=== PATIENT | female | born 1990 | race Caucasian/White ===

== ENCOUNTER 2020-08-16 08:00 | Outpatient (CLI) | payer OTHER ==
[2020-08-16 16:13] LABS: MUDS CUTOFF CONCENTRATIONS CUTOFF CONC BELOW:
[2020-08-16 16:18] LABS: BILIRUBIN,URINE NEGATIVE (NEGATIVE); GLUCOSE, URINE (UA) NEGATIVE (NEGATIVE); KETONES,URINE (UA) NEGATIVE (NEGATIVE); LEUKOCYTE ESTERASE, URINE TRACE (NEGATIVE); NITRITE,URINE NEGATIVE (NEGATIVE); OCCULT BLOOD,URINE NEGATIVE (NEGATIVE); PROTEIN,URINE NEGATIVE (NEGATIVE); UROBILINOGEN,URINE 0.2 (NORMAL) E.U./dL (NORMAL)
[2020-08-16 16:28] LABS: BACTERIA,URINE Rare /HPF (None Seen); CLARITY,URINE CLEAR (CLEAR); RBC,URINE 0-5 /HPF (0-5); SQUAMOUS EPITHELIAL CELL,UR MOD Squamous (<= Few); WBC,URINE 0-3 /HPF (0-5)
[2020-08-16 16:29] LABS: AMPHETAMINE SCREEN,URINE NEGATIVE (NEGATIVE); BARBITURATE SCREEN,UR NEGATIVE (NEGATIVE); BENZODIAZEPINES SCREEN, URINE NEGATIVE (NEGATIVE); COCAINE SCREEN URINE NEGATIVE (NEGATIVE); METHADONE SCREEN, URINE NEGATIVE (NEGATIVE); METHAMPHETAMINES SCREEN, URINE NEGATIVE (NEGATIVE); OPIATE SCREEN, URINE NEGATIVE (NEGATIVE); OXYCODONE SCREEN, URINE NEGATIVE (NEGATIVE); PROPOXYPHENE SCREEN, URINE NEGATIVE (NEGATIVE); THC CANNABINOID SCREEN, URINE NEGATIVE (NEGATIVE); TRICYCLIC ANTIDEPRESSANT,URINE NEGATIVE (NEGATIVE)
== END 2020-08-16 23:59 | disposition home or self-care (01) ==
LOC: LAB.WC 08:00
PROVIDERS: ATTEND Nurse Practitioner Obstetrics & Gynecology
DX: Z32.01 Encounter for pregnancy test, result positive (principal)
CPT/HCPCS: 80306; 81001; 87086

== ENCOUNTER 2020-08-19 14:53 | Outpatient (CLI) | payer OTHER ==
[2020-08-19 19:28] LABS: BASOPHILS # (AUTO) 0.1 10^3/uL (0.0-0.1); BASOPHILS % (AUTO) 0.4 %; EOSINOPHILS # (AUTO) 0.7 10^3/uL (0.0-0.7); EOSINOPHILS % (AUTO) 3.9 %; HCT - HEMATOCRIT 33.6 % (37.0-47.0); HGB - HEMOGLOBIN 10.8 g/dL (12.0-16.0); LYMPHOCYTES # (AUTO) 3.1 10^3/uL (1.5-3.5); LYMPHOCYTES % (AUTO) 16.2 %; MEAN CORPUSCULAR HEMOGLOBIN 29.1 pg (27.0-31.0); MEAN CORPUSCULAR HGB CONC 32.1 g/dL (32.0-36.0); MEAN CORPUSCULAR VOLUME 90.6 fL (81.0-99.0); MONOCYTES # (AUTO) 1.3 10^3/uL (0.0-1.0); NEUTROPHILS # (AUTO) 13.5 10^3/uL (1.5-6.6); NEUTROPHILS % (AUTO) 71.6 %; PLT - PLATELET COUNT 323 10^3/uL (130-450); RED BLOOD COUNT 3.71 10^6/uL (4.20-5.40); RED CELL DISTRIBUTION WIDTH 14.2 % (12.0-15.0); WHITE BLOOD COUNT 18.8 x10^3/uL (4.8-10.8)
[2020-08-20 12:32] LABS: HEPATITIS B SURFACE ANTIGEN NON-REACTIVE (NON-REACTIVE)
[2020-08-20 12:46] LABS: HEPATITIS C ANTIBODY NON-REACTIVE (NON-REACTIVE)
[2020-08-20 15:06] LABS: HIV AG/AB 4TH GEN NON-REACTIVE (NON-REACTIVE)
== END 2020-08-19 14:54 | disposition home or self-care (01) ==
LOC: LAB.N 14:53
PROVIDERS: ATTEND Nurse Practitioner Obstetrics & Gynecology
DX: Z32.01 Encounter for pregnancy test, result positive (principal)
CPT/HCPCS: 36415; 85025; 86592; 86762; 86787; 86803; 86850; 86900; 86901; 87340; 87389

== ENCOUNTER 2020-08-21 18:48 | Outpatient (CLI) | payer OTHER ==
--- NOTE | 2020-08-22 09:15 | Ultrasound Report ---
PROCEDURE: OB Detailed Eval INDICATIONS: TEST POSITIVE OUTSIDE/PRIOR DATING DATA: Last menstrual period (LMP): 03/27/2020. LMP-based estimated date of delivery (LUI): 01/01/2021. First dating scan (date and location): 08/21/2020. Estimated date of delivery (LUI) from first dating scan: 01/04/2021. TECHNIQUE: Real-time scanning was performed of the fetus, with image documentation and biometric measurements. Endovaginal scanning: Not needed COMPARISON: None. FINDINGS: General: A single living intrauterine gestation is present. Presentation: Variable at this time Placenta: Placental position is posterior, without previa. Amniotic fluid index: 14.1 cm, 47 percentile for gestational age. heart rate: Normal. Maternal cervical canal: 3.5 cm long; normal length is 2.5 cm or more. biometrics: Biparietal diameter: 4.8 cm, 20 weeks 4 days Head circumference: 18.3 cm, 20 weeks 5 days Abdominal circumference: Femur length: 15.8 cm, 20 weeks 6 days Femur length 3.5 cm, 21 weeks 1 day Estimated gestational age from initial scan: not applicable. Composite gestational age from present scan: 20 weeks 4 days Estimated weight and percentile: 390 g, 43rd percentile Measurement variability in biometric dating: +/- 10 days from 12-20 weeks gestation, +/- 2 weeks from 20-30 weeks gestation, +/- 3 weeks at 30 weeks gestation or later. Anatomic survey: Neuro: Ventricles are normal at less than 10 mm. Cisterna magna is normal at 3-11 mm. Cerebellum i s normal in size and morphology. Nuchal skin fold: Normal at less than 6 mm between 14 and 20 weeks gestational age. Face: Nose and lips, facial profile are normal. Spine: No evidence for spina bifida. Heart: 4-chambered heart is present, with normal ventricular outflow tracts. Diaphragm: Diaphragm is intact. Stomach: Left-sided stomach is present. Kidneys: No hydronephrosis. Normal is less than 5 mm in 2nd trimester, less than 7 mm in 3rd trimester. Cord: 3 vessel cord has orthotopic insertion. Bladder: Normal in size. Extremities: All 4 extremities are visualized. IMPRESSION: Normal survey of anatomy, delivery date projected to be centered on 01/04/2021. Variable positio n of the fetus at this time, posterior placenta, normal amniotic fluid volume. Reviewed by: Joe Segal MD on 08/22/2020 9:14 AM PDT Approved by: Joe Segal MD on 08/22/2020 9:14 AM PDT Station ID: [id number]
== END 2020-08-21 18:49 | disposition home or self-care (01) ==
LOC: DI 18:48
PROVIDERS: ATTEND Advanced Practice Midwife
DX: Z32.01 Encounter for pregnancy test, result positive (principal)

== ENCOUNTER 2020-08-26 08:00 | Outpatient (CLI) | payer OTHER ==
[2020-08-26 21:28] LABS: CHLAMYDIA TRACHOMATIS DNA NEGATIVE (NEGATIVE); NEISSERIA GONORRHOEAE DNA NEGATIVE (NEGATIVE); TRICHOMONAS VAGINALIS DNA NEGATIVE (NEGATIVE)
== END 2020-08-26 23:59 | disposition home or self-care (01) ==
LOC: LAB.WC 08:00
PROVIDERS: ATTEND Advanced Practice Midwife
DX: Z11.3 Encounter for screening for infections with a predominantly sexual mode of transmission (principal)
CPT/HCPCS: 87491; 87591; 87661

== ENCOUNTER 2020-10-15 12:31 | Outpatient (CLI) | payer OTHER ==
[2020-10-15 17:50] LABS: BASOPHILS # (AUTO) 0.1 10^3/uL (0.0-0.1); BASOPHILS % (AUTO) 0.4 %; EOSINOPHILS # (AUTO) 0.5 10^3/uL (0.0-0.7); EOSINOPHILS % (AUTO) 3.6 %; HCT - HEMATOCRIT 33.6 % (37.0-47.0); HGB - HEMOGLOBIN 10.7 g/dL (12.0-16.0); LYMPHOCYTES # (AUTO) 2.4 10^3/uL (1.5-3.5); LYMPHOCYTES % (AUTO) 15.7 %; MEAN CORPUSCULAR HEMOGLOBIN 29.2 pg (27.0-31.0); MEAN CORPUSCULAR HGB CONC 31.8 g/dL (32.0-36.0); MEAN CORPUSCULAR VOLUME 91.8 fL (81.0-99.0); MEAN PLATELET VOLUME 12.2 fL (7.9-10.8); MONOCYTES % (AUTO) 6.9 %; NEUTROPHILS % (AUTO) 72.5 %; PLT - PLATELET COUNT 321 10^3/uL (130-450); RED BLOOD COUNT 3.66 10^6/uL (4.20-5.40); RED CELL DISTRIBUTION WIDTH 13.6 % (12.0-15.0); WHITE BLOOD COUNT 15.1 x10^3/uL (4.8-10.8)
== END 2020-10-15 12:32 | disposition home or self-care (01) ==
LOC: LAB.N 12:31
PROVIDERS: ATTEND Nurse Practitioner Obstetrics & Gynecology
DX: Z36.89 Encounter for other specified antenatal screening (principal)
CPT/HCPCS: 36415; 82950; 85025

== ENCOUNTER 2020-12-03 01:00 | Outpatient (CLI) | payer OTHER | END 2020-12-03 23:59 | disposition home or self-care (01) | LOC: LAB 01:00 | PROVIDERS: ATTEND Nurse Practitioner Obstetrics & Gynecology | DX: Z34.90 Encounter for supervision of normal pregnancy, unspecified, unspecified trimester (principal) | CPT/HCPCS: 87797 ==

== ENCOUNTER 2021-01-02 08:34 | Inpatient (IN) | payer OTHER ==
[2021-01-02] MEDS ORDERED: OXYTOCIN 10 UNIT/ML VIAL IM PRN (09:24)
[2021-01-02] MEDS ORDERED: miSOPROStoL 200 MCG TABLET BC PRN (09:24)
[2021-01-02] MEDS ORDERED: SODIUM CHLORIDE FLUSH 0.9% 10 ML SYRINGE IVP PRN (09:24)
[2021-01-02] MEDS ORDERED: ONDANSETRON 4 MG/2 ML VIAL IVP PRN (09:24)
[2021-01-02] MEDS ORDERED: CARBOPROST TROMETHAMINE 250 MCG/ML AMP IM PRN (09:24)
[2021-01-02] MEDS ORDERED: LIDOCAINE-MPF 1% 30 ML VIAL ID PRN (09:24)
[2021-01-02] MEDS ORDERED: METHYLERGONOVINE 0.2 MG/ML VIAL IM PRN (09:24)
[2021-01-02] MEDS ORDERED: TRANEXAMIC ACID IN NACL 1,000 MG/100 ML BAG IV PRN (09:24)
--- NOTE | 2021-01-02 09:29 | HISTORY & PHYSICAL EXAMINATION ---
Admit History - Visit Reason Visit Reason: Other - : 4 Parity: 2 Premature: 0 Ectopic: 0 : 1 Care: positive: [facility] Risk/History: positive: None Complications This : positive: None Smoking Status: Former smoker - Mother's Labs Mother's Blood Type: positive: A Mother's RH: positive: Positive GBS: positive: Group B Step Negative Rubella Status: positive: Immune Meds/Allgy - Allergies Allergies/Adverse Reactions: Allergies Allergy/AdvReac Type Severity Reaction Status Date / Time azithromycin Allergy Severe Unknown Verified 01/02/21 09:31 Review of Systems - Constitutional Constitutional: denies: Fatigue, Fever, Chills, Malaise - Eyes Eyes: denies: Blurred vision, Spots in vision, Dipolpia - Cardiovascular Cariovascular: denies: Irregular heart rate, Chest pain, Edema - Respiratory Respiratory: denies: Cough, SOB at rest - Gastrointestinal Gastrointestinal: denies: Constipation, Diarrhea, Change in bowel habits - Integumentary Integumentary: denies: Rash, Pruritis - Neurological Neurological: denies: Headache Physical - Abdominal Exam Contraction Frequency (min/apart): occasional Contraction Intensity: positive: Mild Uterine Resting Tone: positive: Soft - Monitoring Heart Rate Baseline: 140 Strip Review: positive: Category I - Presentation Presentation: positive: Vertex - Vaginal Exam Membranes: positive: Membranes intact Dilation (in cm): 4 Effacement (%): 75 Station: positive: -2 Cervical Position: positive: Posterior - Speculum Exam Speculum Exam Performed: positive: No Plan for Labor - Plan For Labor I expect patient to be DC'd or transferred within 96 hours.: Yes Plan for Labor: Rosa is a 30yo @ 40.1wks gestation by LMP c/w 21wks U/S who presents today for labor augmentation secondary to advanced dilation and history of precipitous deliveries. She denies vaginal bleeding or leakage of fluid. Reports very mild, occasional contractions and reports +FM. She is supported by her partner Erasto today. She has been a patient of [facility] Since 20wks gestation. She is late to seek care secondary to move at the beginning of her and difficulty obtaining insurance coverage through [employer]. Her course has remained uncomplicated. She will be admitted for augmentation of labor with AROM today. 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 No ETOH or IVDA. Erasto is [employer] [place] [employer]. FMHx: Cervical cancer - paternal grandmother and 2 paternal aunts; Stroke/CVA - PGF; Diabetes - PGF; Luekemia - MGF course: Hx quick labors after AROM LMP: 03/27/2020 LUI by LMP:01/01/2021 Initial U/S: @ 21.1wks LUI 01/04/2021; c/w LMP FINAL LUI: 01/01/2021 A pos/Rubella- immune VZV:immune Genetic testing: discussed and declines FAS:Posterior placenta. VEDA 14.1-wnl. EFW 43%. 3VC. Glucola 119 Influenza: n/a TDAP 10/16/2020 GBS @ 35.6 wks-Negative HSV: denies self and partner Breast pump Rx 10/16/2020 MOD: . Erasto. BOY: Richard. (Sisters Martin 9yo, Scarlet 18mo) pp contraception: vasectomy pap: desires Physical Exam: Normocephalic, atraumatic Heart RRR w/o M/G/R Lungs CTAB Abdomen gravid, soft, nontender EFW 3250g FHR baseline 140s, moderate variability, + accels, no decels Contractions palpate mild occasionally and are not appreciated by pt SVE yesterday 4-5/75/-2, soft. Vertex. Bilateral LE's no edema. Mood is good Assessment: 30yo @ 40.1wks gestation by LMP c/w 21wk U/S Advanced dilation in GBS negative FHR Category I Plan: Admit for augmentation of labor AROM with SVE after IV access has been achieved Continuous monitoring x 30 minutes after SVE, then intermittent heart rate auscultation is appropriate Anticipate Pt, at the bedside, and labor RN all verbalized understanding and agree to above plan. They all deny further questions or concerns at this time.
[2021-01-02] MEDS ORDERED: LACTATED RINGERS 1,000 ML IV SCH (10:00)
[2021-01-02 10:14] LABS: BASOPHILS # (AUTO) 0.1 10^3/uL (0.0-0.1); BASOPHILS % (AUTO) 0.5 %; EOSINOPHILS # (AUTO) 0.3 10^3/uL (0.0-0.7); EOSINOPHILS % (AUTO) 1.9 %; HCT - HEMATOCRIT 34.5 % (37.0-47.0); HGB - HEMOGLOBIN 11.3 g/dL (12.0-16.0); LYMPHOCYTES # (AUTO) 2.1 10^3/uL (1.5-3.5); LYMPHOCYTES % (AUTO) 16.2 %; MEAN CORPUSCULAR HEMOGLOBIN 28.9 pg (27.0-31.0); MEAN CORPUSCULAR HGB CONC 32.8 g/dL (32.0-36.0); MEAN CORPUSCULAR VOLUME 88.2 fL (81.0-99.0); MEAN PLATELET VOLUME 11.9 fL (7.9-10.8); MONOCYTES # (AUTO) 1.1 10^3/uL (0.0-1.0); MONOCYTES % (AUTO) 8.5 %; NEUTROPHILS # (AUTO) 9.5 10^3/uL (1.5-6.6); PLT - PLATELET COUNT 282 10^3/uL (130-450); RED BLOOD COUNT 3.91 10^6/uL (4.20-5.40); WHITE BLOOD COUNT 13.2 x10^3/uL (4.8-10.8)
[2021-01-02] MEDS: OXYTOCIN/SODIUM CHLORIDE 500 ML IV PRN ×2 (14:27→16:15)
[2021-01-02] MEDS ORDERED: WITCH HAZEL/GLYCERIN 1 PAD TOP PRN (14:45)
[2021-01-02] MEDS ORDERED: HYDROCORTISONE 1% CREAM 28 GM TUBE PR PRN (14:45)
--- NOTE | 2021-01-02 14:49 | DELIVERY NOTE ---
Delivery Note - Labor Labor: positive: Augmented by ARM - Infant Delivery Method Delivery Method: positive: Spontaneous vaginal delivery - Presentation Presentation: positive: Vertex, ESTER - left occiput anterior - Nuchal Cord Nuchal Cord: positive: Present, Reduced - Amniotic Fluid Description Amniotic Fluid Description: positive: Clear - Episiotomy Type Episiotomy Type: positive: None - Laceration Laceration: positive: None - Delivery Outcome Delivery Outcome: positive: Livebirth - : positive: Placed in direct skin contact with mother, Stimulated, Warmed, Rarden used, Warmer used, Other [place] sex: positive: Male - Cord Cord: positive: 3 vessels - Placenta Placenta: positive: Intact, Spontaneous - Estimated Blood Loss Estimated Blood Loss (in cc): 150 - Post Delivery Events Post Delivery Events: positive: Shoulder dystocia - Delivery Comments (Free Text/Narrative) Delivery Comments (Free Text/Narrative): This 30yo @ 40.1wks gestation by LMP c/w 21.1wk U/S presented on 01/02/2021 for augmentation of labor secondary to advanced dilation at 0800. Cervix was 4/90/-2, and vertex. AROM occurred at 1010 and was noted to be a moderate amount of clear fluid. FHR pattern demonstrated Category I pattern throughout labor with Category II pattern at onset of pushing however overall was reassuring. Normal labor course. Pt progressed to c/c/+1 with spontaneous onset of pushing at 1409. : Delivery of head at 1424. Nuchal cord x 1 was reduced. Suprapubic pressure and Ferny maneuvers applied followed by second Braun Maneuver with delivery of body 110 seconds later. The was placed on maternal abdomen and cord was clamped by CNM and cut by FOB. 3VC. Cord gases and cord blood obtained. moved to warmer for resuscitation, dried, stimulated, CPAP, PPV with quick improvement and active crying. Apgars were 6/9 at 1 and 5 minutes respectively. Fundal massage and gentle cord traction applied for active management of the third stage. Placenta delivered spontaneously and intact at 1427. EBL 150mL. Fourth Stage: Uterine fundus firm and there is no excessive bleeding. The perineum, vagina, and cervix were inspected and noted to be intact. initiated. Family bonding well. Both mother and baby were left in stable condition.
[2021-01-02] MEDS: ACETAMINOPHEN 500 MG TABLET PO SCH ×2 (15:06→22:59)
[2021-01-02] MEDS: IBUPROFEN 800 MG TABLET PO SCH ×2 (15:06→20:49)
[2021-01-02] MEDS ORDERED: SODIUM CHLORIDE FLUSH 0.9% 10 ML SYRINGE IVP SCH (17:00)
[2021-01-02] MEDS: DOCUSATE SODIUM 100 MG CAPSULE PO SCH (20:49)
[2021-01-03] MEDS: IBUPROFEN 800 MG TABLET PO SCH ×3 (02:52→15:39)
[2021-01-03] MEDS: ACETAMINOPHEN 500 MG TABLET PO SCH (07:21)
[2021-01-03] MEDS: DOCUSATE SODIUM 100 MG CAPSULE PO SCH (09:23)
[2021-01-03 12:56] VITALS: BP 121/70
--- NOTE | 2021-01-04 06:41 | Discharge Plan ---
Discharge Plan Problem Reviewed?: Yes Disposition: Home, Self Care Condition: Good Activity Restrictions: No Restrictions Shower Restrictions: No Driving Restrictions: No Weight Bearing: Full Weight No Smoking: If you smoke, Please STOP! Call for help. Follow-up with: Annalee Hoffman CNM, ARNP [Provider Admit Priv/Credential] -
--- NOTE | 2021-01-04 06:48 | DISCHARGE SUMMARY ---
Discharge Summary Condition at Discharge: Good Discharge Disposition: 01 Home, Self Care - HOSPITAL COURSE Hospital Course: Date of admission: 01/02/2021 Date of discharge: 01/03/2021 Diagnosis on admission: 1. 30yo @ 40.1wks gestation by LMP c/w 21wk U/S 2. Advanced dilation in 3. GBS neg 4. FHR Category I Diagnosis on Discharge: 1. 30yo s/p TSVD on 01/02/2021 following 110 second shoulder dystocia 2. Perineum intact 3. 4. normal recovery Brief History: She is a patient of [facility] who presented on 01/02/2021 for augmentation of labor secondary to advanced dilation. Cerivx was 4/90/-2 and vertex. AROM occurred at 1010 and was noted to be a moderate amount of clear fluid. Patient progressed spontaneously to deliver a viable male on 01/02/2021 @ 1424 following a 110 second shoulder dystocia. Perineum was intact. Apgars were 6/9 at 1 and 5 minutes respectively. EBL 150mL. She has been doing well in her course. She is ambulating and tolerating a regular diet. She is urinating without difficulty and her lochia is normal. Her pain is well controlled with oral medications. She is bonding well with her baby and she is without difficulty. She is excited about being able to go home today and she feels well supported at home. She intends to follow up with myself at [facility] in 1 week for routine visit or sooner PRN. She has been given instructions to continue taking her vitamin while and to continue taking ibuprofen and tylenol over the counter as needed for pain management. She has been given precautions to call if she has any worsening fevers, chills, abdominal pain, increased vaginal bleeding or foul smelling vaginal lochia. She verbalized understanding and agrees to above plan. She denies further questions or concerns at this time. - ALLERGIES Allergies/Adverse Reactions: Allergies Allergy/AdvReac Type Severity Reaction Status Date / Time azithromycin Allergy Severe Unknown Verified 01/02/21 09:31 - LABS Result Diagrams: 01/02/21 09:45
== END 2021-01-03 16:38 | disposition home or self-care (01) | DRG 807 ==
LOC: WFO 08:34 → FBP 08:37 → WFO 09:22 → FBP 09:24
PROVIDERS: ADMIT Nurse Practitioner Obstetrics & Gynecology; ATTEND Nurse Practitioner Obstetrics & Gynecology
PROC: 10E0XZZ Delivery of Products of Conception, External Approach (ICD-10-PCS; principal; 2021-01-02)
PROC: 10907ZC Drainage of Amniotic Fluid, Therapeutic from Products of Conception, Via Natural or Artificial Opening (ICD-10-PCS; 2021-01-02)
DX: O66.0 Obstructed labor due to shoulder dystocia (principal); Z37.0 Single live birth; O69.81X0 Labor and delivery complicated by cord around neck, without compression, not applicable or unspecified; Z3A.40 40 weeks gestation of pregnancy; Z87.891 Personal history of nicotine dependence; Z90.49 Acquired absence of other specified parts of digestive tract
CPT/HCPCS: 36415; 85025; 86850; 86900; 86901; A9270; J2210

== ENCOUNTER 2023-05-27 12:43 | Day surgery (SDC) | payer OTHER ==
[2023-05-27] MEDS ORDERED: LIDOCAINE 1%-EPI 1:100000 20 ML MDV ONE (13:00)
[2023-05-27] MEDS ORDERED: BUPIVACAINE 0.25% PF 30 ML VIAL ONE (13:01)
[2023-05-27 13:11] LABS: HCG UR QUAL NEGATIVE
[2023-05-27] MEDS: LACTATED RINGERS 1,000 ML IV ONE ×3 (13:35→16:11)
[2023-05-27] MEDS ORDERED: MORPHINE 2 MG/ML CARPUJECT IVP PRN (14:05)
[2023-05-27] MEDS ORDERED: fentaNYL 100 MCG/2 ML VIAL IVP PRN (14:05)
[2023-05-27] MEDS ORDERED: NALOXONE 0.4 MG/ML VIAL IVP PRN (14:05)
[2023-05-27] MEDS ORDERED: ATROPINE ABBOJECT 1 MG/10 ML SYRINGE IVP PRN (14:05)
[2023-05-27] MEDS ORDERED: ONDANSETRON 4 MG/2 ML VIAL IVP PRN (14:05)
--- NOTE | 2023-05-27 14:05 | ANESTHESIA ---
Pre-Anesthesia VS, & Labs - Diagnosis ventral incisional hernia - Procedure ventral incisional hernia repair with mesh Vital Signs: Temp Pulse Resp BP Pulse Ox O2 Flow Rate 36.5 C 66 16 132/76 H 99 05/27/23 12:52 05/27/23 12:52 05/27/23 12:52 05/27/23 12:52 05/27/23 12:52 Height: 5 ft 3 in Weight (kg): 72.5 kg Body Mass Index: 28.3 BMI Classification: Overweight - NPO >8 hours - Is Patient ?: No Home Medications and Allergies Home Medications: Ambulatory Orders Albuterol Sulfate [Proair Respiclick] 90 mcg IH DAILY PRN 05/20/23 Montelukast [Singulair] 10 mg PO DAILY 05/20/23 Albuterol Sulfate [Proair Respiclick] 90 mcg IH DAILY PRN 05/20/23 Montelukast [Singulair] 10 mg PO DAILY 05/20/23 Allergies/Adverse Reactions: Allergies Allergy/AdvReac Type Severity Reaction Status Date / Time azithromycin Allergy Severe Nausea Verified 05/20/23 14:36 Anes History & Medical History - Anesthetic History Anesthesia Complications: reports: No previous complications Family history of Anesthesia Complications: Denies Family history of Malignant Hyperthermia: Denies - Medical History Cardiovascular: reports: Murmur Pulmonary: reports: Asthma Gastrointestinal: reports: None Urinary: reports: None Neuro: reports: None Musculoskeletal: reports: Osteoarthritis Endocrine/Autoimmune: reports: None Skin: reports: Eczema Smoking Status: Former smoker (quit 4 years ago) Psychosocial: reports: No issues indicated History of Cancer?: No - Surgical History General: reports: Splenectomy Orthopedic: reports: Other Exam General: Alert, Oriented x3, Cooperative, No acute distress Dental: WNL Mouth Openin Fingerbreadth Neck Mobility: Normal Mallampati classification: II Thyromental Distance: 4-6 cm Mental/Cognitive Status: Alert/Oriented X3, Normal for patient Plan Anesthesia Type: General Consent for Procedure(s) Verified and Reviewed: Yes Code Status: Attempt Resuscitation ASA classification: 2-Mild systemic disease Is this case an emergency?: No
[2023-05-27] MEDS ORDERED: PROPOFOL 200 MG/20 ML VIAL IVP ONE (14:18)
[2023-05-27] MEDS ORDERED: fentaNYL 100 MCG/2 ML VIAL ONE ×2 (14:18→14:51)
[2023-05-27] MEDS ORDERED: ROCURONIUM 50 MG/5 ML VIAL ONE (14:18)
[2023-05-27] MEDS ORDERED: MIDAZOLAM 2 MG/2 ML VIAL ONE (14:18)
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
[2023-05-27] MEDS ORDERED: ONDANSETRON 4 MG/2 ML VIAL ONE (14:37)
[2023-05-27] MEDS ORDERED: DEXAMETHASONE 4 MG/ML VIAL ONE (14:37)
[2023-05-27] MEDS: BUPIVACAINE 0.25% PF 30 ML VIAL SUBQ ONE (14:52)
[2023-05-27] MEDS ORDERED: LACTATED RINGERS 1,000 ML IV SCH (15:00)
[2023-05-27] MEDS ORDERED: BUPIVACAINE 0.25% PF 10 ML VIAL ONE (15:38)
[2023-05-27] MEDS: BUPIVACAINE 0.25% PF 10 ML VIAL SUBQ ONE (15:40)
[2023-05-27] MEDS ORDERED: SUGAMMADEX 200 MG/2 ML VIAL IVP ONE (15:42)
[2023-05-27] MEDS ORDERED: HYDROmorphone 0.5 MG/0.5 ML SYRINGE ONE ×2 (16:16→16:27)
[2023-05-27] MEDS: HYDROmorphone 0.5 MG/0.5 ML SYRINGE IVP PRN (16:16)
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
[2023-05-27] MEDS: KETOROLAC 15 MG/ML VIAL IVP STA (16:44)
--- NOTE | 2023-05-27 16:45 | ANESTHESIA POST OP EVALUATION ---
Anesthesia Post Eval - Post Anesthesia Eval Vitals: Last Vital Signs Temp 36.3 C L 05/27/23 16:40 Pulse 53 L 05/27/23 16:40 Resp 13 05/27/23 16:40 BP 130/90 H 05/27/23 16:40 Pulse Ox 98 05/27/23 16:40 O2 Flow Rate CV Function Including HR & BP: Stable Pain Control: Satisfactory Nausea & Vomiting: Negative Mental Status: Baseline Respiratory Status: Airway Patent Hydration Status: Satisfactory Anesthesia Complications: None
[2023-05-27] MEDS ORDERED: HYDROcod/ACETAM 5/325 MG TABLET ONE (17:15)
[2023-05-27] MEDS: HYDROcod/ACETAM 5/325 MG TABLET PO PRN (17:16)
[2023-05-27 17:17] VITALS: BP 118/70; O2SAT 95
== END 2023-05-27 12:44 | disposition home or self-care (01) ==
LOC: SDS 12:43
PROVIDERS: ATTEND Surgery
DX: K43.2 Incisional hernia without obstruction or gangrene (principal); J45.909 Unspecified asthma, uncomplicated; Z87.891 Personal history of nicotine dependence
CPT/HCPCS: 49593; 81025; A9270; C1781; J1170; J7120